=== PATIENT | female | born 1970 | race Caucasian/White ===

== ENCOUNTER 2017-09-23 18:41 | Emergency (ER) | payer OTHER ==
[~2017-09-23] VITALS: Ht 147.3 cm; Wt 102.7 kg
[~2017-09-23 18:41] MED LIST: ACET500C5 PO; BACTDS PO; CEPH-443 PO
[2017-09-23 19:06] VITALS: Ht 147.3 cm; Wt 102.7 kg
--- NOTE | 2017-09-23 20:54 | ERD ---
ER Documentation Chief Complaint Chief Complaint pelvic pain +vaginal discharge since last night. denies any bleeding. HPI This 46 year old female presents with umbilical pain, d/c and states that " water was draining out" pt reports fowl , symptoms started yesterday, patient denies nausea, vomiting, fever, or chills ROS All systems reviewed and are negative except as per history of present illness. Medications Home Meds Active Scripts Ibuprofen* (Motrin*) 600 Mg Tab, 600 MG PO Q6, #30 TAB Prov:CAL,ERIC 09/23/17 Ketoconazole* (Ketoconazole* 2% Cream (15gm)) 1 Applic Cr, 1 APPLIC TOP BID for 14 Days, TUB Prov:CAL,ERIC 09/23/17 Mupirocin* (Bactroban*) 2% -22 Gram Oint...g., 1 APPLIC TOP BID for 7 Days, EA Prov:CAL,ERIC 09/23/17 Doxycycline Hyclate* (Doxycycline Hyclate*) 100 Mg Tablet.dr, 100 MG PO BID for 10 Days, TAB Prov:CAL,ERIC 09/23/17 Acetaminophen* (Tylophen*) 500 Mg Capsule, 1 CAP PO Q6H Y for PAIN AND OR ELEVATED TEMP, #20 CAP Prov:GUERITA MISTRY NP 09/23/16 Cephalexin* (Keflex*) 500 Mg Capsule, 500 MG PO QID for 7 Days, CAP Prov:MILO ISSA PA-C 08/07/16 Sulfamethoxazole-Trimethoprim* (Bactrim* DS) 800-160 Mg Tab, 1 TAB PO BID for 7 Days, TAB Prov:MILO ISSA PA-C 08/07/16 Allergies Allergies: Coded Allergies: Penicillins (Unverified Allergy, Unknown, 09/23/16) PMhx/Soc Medical and Surgical Hx: pt denies Surgical Hx History of Surgery: Yes (Cholecystectomy) Anesthesia Reaction: No Hx Neurological Disorder: No Hx Respiratory Disorders: No Hx Cardiac Disorders: Yes Hx Psychiatric Problems: No Hx Miscellaneous Medical Probl: No Hx Alcohol Use: No Hx Substance Use: No Hx Tobacco Use: No Smoking Status: Never smoker Physical Exam Vitals Vitals stable, triage notes reviewed and noted to be incorrect, patient has no pelvic pain, denies vaginal discharge, Physical Exam Const: Well-nourished, obese, 46-year-old female in no acute distress ENT: Normal External Ears, Nose and Mouth. Abd: Soft, non tender, non distended. Umbilicus, inverted, deep, bright angry red with white discharge, foul-smelling, tender when assessed Neur: Awake and alert Psych: Normal Mood and Affect Results 24 hrs Current Medications Medications (Trade) Dose Ordered Sig/Eder Route PRN Reason Start Time Stop Time Status Last Admin Dose Admin Ketorolac Tromethamine (Toradol) 15 mg ONCE STAT IM 09/23/17 23:21 09/23/17 23:34 DC Prednisone (Prednisone) 60 mg ONCE ONCE PO 09/23/17 23:30 09/23/17 23:31 DC Acetaminophen (Tylenol Tab) 650 mg ONCE ONCE PO 09/23/17 23:30 09/23/17 23:34 DC Procedures/MDM This 46-year-old female presents to emergency department for evaluation and treatment of umbilical pain, foul odor in watery drainage coming from an umbilicus, symptoms started yesterday, patient denies fever, chills, nausea or vomiting. Patient has not had an infection like this in the past, has a large obese pannus without umbilical jewelry, emergency room course includes history and physical exam, sitting for bacterial infection with cecectomy 100 mg 1 tab p.o. twice daily 10 days, prescribed Bactroban and Nizoral 2% applied twice daily 14 days to apply topically, keep bellybutton clean and dry, instructed to use a electric wheelchair repairer after washing to make sure water has totally been dried from skin. Return to emergency department for worsening of symptoms, or if symptoms fail to improve as anticipated. Patient is stable with no new complaints during ER course, clinically there is no current evidence to suggest necrotizing fasciitis, acute abdomen, or any other emergent condition appearing to require further evaluation or hospitalization. I feel the patient is stable for discharge at this time. I have discussed results, examination findings, the treatment plan with the patient and family present prior to discharge. Indications for emergent reevaluation, side effects of medication were also discussed. All questions were answered. Patient verbalizes understanding and agrees with plan of care. Departure Diagnosis: Primary Impression: Staph infection Condition: Good Patient Instructions: Staph Infection (non-MRSA) Additional Instructions: Thank you for for coming to [facility] for your care today. Please ask your nurse or provider if you have questions about your care today and do not leave until all your questions have been answered. Please use any medications given as directed and follow-up with your doctor (or the doctor you were referred to) in the next 2-3 days. If you do not have a primary care doctor you may follow up at the [facility] - [place], [place] (listed below). You may also use motrin and tylenol as needed for fever and/or pain unless instructed otherwise by your provider or nurse. Indications for more urgent follow-up have been discussed, but you may return to the Emergency Department at ANY time for any worrisome or worsening symptoms. If you have abdominal pain, please know that no test or exam you received is perfect and you should follow up within 8 hours for continued pain. If you had any imaging studies today, such as an X-Ray or CT Scan, these studies will be reviewed later by a radiologist. You will be called if there are important findings that were not identified today, so make sure the contact information you provided at registration is correct. If you received any narcotic pain control medicine today, such as Vicodin, Morphine or Dilaudid, your coordination and judgment may be affected for a number of hours. Please do not drive or operate heavy machinery, and you may want someone to assist you at home. If you were given a prescription for narcotic medication, be aware that it is very addictive- use sparingly and only if necessary. ERIC MCCALL Sep 23, 2017 20:54
[2017-09-23] MEDS ORDERED: DOXY100T20 PO (23:02)
[2017-09-23] MEDS ORDERED: MUPI22OI2 TOP (23:03)
[2017-09-23] MEDS ORDERED: KET2CR15 TOP (23:04)
[2017-09-23 23:14] VITALS: BP 130/79; PULSE 65; RESP 16; TEMP 98.5
[2017-09-23] MEDS ORDERED: KETOROLAC 15 MG INJ IM STA (23:21)
[2017-09-23] MEDS ORDERED: IBUP-1542 PO (23:28)
[2017-09-23] MEDS ORDERED: ACETAMINOPHEN 325 MG TAB PO ONE (23:30)
[2017-09-23] MEDS ORDERED: predniSONE 20 MG TAB PO ONE (23:30)
== END 2017-09-23 23:30 | disposition home or self-care (01) ==
LOC: FTE 18:41
DX: R10.2 Pelvic and perineal pain (principal); B95.8 Unspecified staphylococcus as the cause of diseases classified elsewhere
CPT/HCPCS: 99284